=== PATIENT | male | born 1955 | race Caucasian/White ===

== ENCOUNTER → 2022-02-13 | Outpatient (CLI) | payer MEDICARE ==
[~2022-02-13] MED LIST: ALDACTONE25 M1 PO; ALTACE10 MG PO; ALTACE5 MG PO; CEFTIN500 MG PO; COREG12.5 M1 PO; COREG12.5 MG PO; COREG25 MG PO; COREG6.25 MG PO; DILAUDID2 MG PO; GLUCOPHAGE500 M1 PO; JANUVIA25 MG PO; JANUVIA50 MG PO; K-DUR 1010 MEQ PO; K-LOR20 MEQ PO; K-TAB10 MEQ PO; KLONOPIN0.5 MG PO; KLONOPIN1 MG PO; LANTUS100 U/ML SC; LASIX40 MG PO; LEVOFLOXACIN500 MG PO; LEXAPRO10 MG PO; LIDODERM 5% PATC1 EA PO; MAG-OX 400400 MG PO; METFORMIN500 MG PO; METICORTEN1 MG PO; TORADOL10 MG PO; VITAMIN D1000 IU PO; ZOCOR40 MG PO
== END | disposition home or self-care (01) ==
LOC: CT 09:00
PROVIDERS: ATTEND Internal Medicine Critical Care Medicine
DX: J84.113 Idiopathic non-specific interstitial pneumonitis (principal)